=== PATIENT | male | born 1970 | race Caucasian/White ===

== ENCOUNTER 2019-03-16 17:09 | Outpatient (REF) | payer OTHER, SELFPAY ==
[2019-03-16 19:25] LABS: Calculated LDL 103 mg/dL; Cholesterol 168 mg/dL (<200); HDL Cholesterol 54 mg/dL (40-60); Triglyceride 57 mg/dL (<150)
== END 2019-03-16 17:29 ==
LOC: NCHCN 17:09
PROVIDERS: PCP Family Medicine; Visit Provider Family Medicine
DX: Z00.00 Encounter for general adult medical examination without abnormal findings (principal); Z13.220 Encounter for screening for lipoid disorders
CPT/HCPCS: 80061